=== PATIENT | male | born 1985 | race American Indian/Alaskan Native ===

== ENCOUNTER 2017-02-10 13:18 | Emergency (ER) | payer OTHER ==
[2017-02-10 13:27] VITALS: O2SAT 99
[2017-02-10] MEDS ORDERED: Sodium Chloride 0.9% 1,000 ML IV ONE (14:16)
[2017-02-10] MEDS ORDERED: Sodium Chloride 0.9% 1,000 ML ONE (14:26)
--- NOTE | 2017-02-10 14:47 | C.PDOC ---
History Of Present Illness 31 y/o male presents to the ED with complains of nausea, vomiting, diarrhea since 0600 this morning. Pt reports 3-4 episodes of vomit and 5 episodes diarrhea. Symptoms associated with cramping mid abdominal pain constant since last night. Pt reports eating a TV dinner and felt fine. Hx of appendectomy. Pt also complains of cough for the past 16 days associated with chest congestion, states he feels like there is phlegm stuck in his chest. Pt denies fever, urinary symptoms, SOB or any other complaints. No recent travel, sick contacts or recent antibiotic use. Time Seen by Provider: 02/10/17 13:34 Chief Complaint (Nursing): Abdominal Pain History Per: Patient History/Exam Limitations: no limitations Onset/Duration Of Symptoms: Hrs Current Symptoms Are (Timing): Still Present Quality Of Discomfort: Cramping Associated Symptoms: Nausea, Vomiting, Diarrhea. denies: Fever, Chills, Chest Pain, Urinary Symptoms Recent travel outside of the [place]: No Past Medical History Reviewed: Historical Data, Nursing Documentation, Vital Signs Vital Signs: Last Vital Signs Temp 98.2 F 02/10/17 16:02 Pulse 70 02/10/17 16:02 Resp 16 02/10/17 16:02 BP 112/68 02/10/17 16:02 Pulse Ox 99 02/10/17 16:55 Surgical History: Appendectomy (2009) Family History: States: Unknown Family Hx - Social History Hx Alcohol Use: No Hx Substance Use: Yes (MARIJUANA ON DAILY BASIS) - Immunization History Hx Tetanus Toxoid Vaccination: No Hx Influenza Vaccination: No Hx Pneumococcal Vaccination: No Review Of Systems Except As Marked, All Systems Reviewed And Found Negative. Constitutional: Negative for: Fever, Chills Cardiovascular: Negative for: Chest Pain Respiratory: Positive for: Cough, Other (chest congestion). Negative for: Shortness of Breath Gastrointestinal: Positive for: Nausea, Vomiting, Abdominal Pain, Diarrhea Genitourinary: Negative for: Dysuria, Hematuria Physical Exam - Physical Exam Appears: Non-toxic, No Acute Distress Skin: Warm, Dry, No Rash Head: Atraumatic, Normacephalic Oral Mucosa: Dry Throat: Normal Neck: Normal ROM, Supple Chest: Symmetrical Cardiovascular: Rhythm Regular, No Murmur Respiratory: Normal Breath Sounds, No Rales, No Rhonchi, No Wheezing Gastrointestinal/Abdominal: Soft, No Tenderness Extremity: Bilateral: Atraumatic Neurological/Psych: Oriented x3 ED Course And Treatment - Laboratory Results Result Diagrams: 02/10/17 14:42 02/10/17 14:42 O2 Sat by Pulse Oximetry: 99 (on room air) Pulse Ox Interpretation: Normal Progress Note: Plan: labs, CXR, IV fluids, protonix, toradol, zofran Medical Decision Making Medical Decision Making: Plan: -Labs -Protonix / zofran / toradol -CXR -IVF Labs reviewed and are wnl. CXR is normal. On re-evaluation, patient's symptoms are improving. Denies any chest pain, SOB or abdominal pain. On exam, patient is laying in bed in no acute distress. On exam, lungs still clear to auscultation, cardiac RRR, abdomen still soft with no tenderness. Labs reviewed , WBC 16, Hgb 8, CMP wnl, CXR NAD. Patient is feeling much improved with no pain at this time. Patient states that he feels comfortable going home. Advised to follow up with PMD in 1-2 days without fail. Advised to take medications as prescribed. Return to the ER at any time for any new or worsening symptoms. Disposition - Disposition Referrals: [facility] [Outside] Codie Ratliff MD [Staff Provider] - Disposition: HOME/ ROUTINE Disposition Time: 16:45 Condition: GOOD Additional Instructions: Follow up with pmd referral provided in 2 days without fail. Take medications as prescribed. Advised to return to the ER at any time for any new or worsening symptoms. Prescriptions: Dicyclomine [Bentyl] 20 mg PO QID PRN #20 tab PRN Reason: Other Famotidine [Pepcid] 40 mg PO DAILY #20 tablet Ondansetron ODT [Zofran ODT] 4 mg PO DAILY PRN #20 odt PRN Reason: Nausea/Vomiting Instructions: Gastroenteritis (ED), Dehydration (ED) Print Language: K[place]ILI - Clinical Impression Clinical Impression: Gastroenteritis, Dehydration - PA / DEPUTY COURT / Resident Statement MD/DO has reviewed & agrees with the documentation as recorded. - Scribe Statement The provider has reviewed the documentation as recorded by the Coby Retana All medical record entries made by the Scribe were at my direction and personally dictated by me. I have reviewed the chart and agree that the record accurately reflects my personal performance of the history, physical exam, medical decision making, and the department course for this patient. I have also personally directed, reviewed, and agree with the discharge instructions and disposition.
[2017-02-10 14:49] LABS: BASO % 0.4 % (0.0-2.0); EOS % 0.3 % (0.0-4.0); HEMATOCRIT 44.2 % (35.0-51.0); LYMPH # 0.7 K/uL (1.0-4.3); LYMPH % 13.7 % (20.0-40.0); MEAN CELL VOLUME 94.1 fL (80.0-94.0); MEAN CORPUSCULAR HEMOGLOBIN 31.1 pg (27.0-31.0); MEAN CORPUSCULAR HGB CONC 33.1 g/dL (33.0-37.0); MEAN PLATELET VOLUME 8.7 fL (7.2-11.7); MONO # 0.5 K/uL (0.0-0.8); MONO % 9.5 % (0.0-10.0); WHITE BLOOD COUNT 4.8 K/uL (4.8-10.8)
[2017-02-10 14:54] LABS: CHLORIDE 101 mmol/L (98-107)
[2017-02-10 14:55] LABS: POTASSIUM 3.9 mmol/L (3.6-5.2); SODIUM 141 mmol/L (132-148)
[2017-02-10 14:57] LABS: ALB/GLOB RATIO 1.2 (1.0-2.1); ALKALINE PHOSPHATASE 54 U/L (38-126); AST/SGOT 27 U/L (17-59); BILIRUBIN,TOTAL 0.6 mg/dL (0.2-1.3); CARBON DIOXIDE 27 mmol/L (22-30); GFR AFRICAN-AMERICAN > 60; TOTAL PROTEIN 8.2 g/dL (6.3-8.3)
[2017-02-10 14:58] LABS: ALT/SGPT 19 U/L (21-72); BLOOD UREA NITROGEN 9 mg/dL (9-20); GLUCOSE,RANDOM 91 mg/dL (75-110)
[2017-02-10 16:03] VITALS: BP 112/68; PULSE 70; RESP 16; TEMP 98.2
--- NOTE | 2017-02-10 16:15 | RAD ---
HISTORY: cough COMPARISON: No prior. TECHNIQUE: Chest PA and lateral FINDINGS: LUNGS: No focal consolidation. 11 mm nodular density projecting over the 9th posterior rib, possibly nipple shadow. Please note that chest x-ray has limited sensitivity for the detection of pulmonary masses. PLEURA: No significant pleural effusion identified. No definite pneumothorax . CARDIOVASCULAR: The cardiomediastinal silhouette appears within normal limits of size. OSSEOUS STRUCTURES: No acute osseous abnormality identified. VISUALIZED UPPER ABDOMEN: Unremarkable. OTHER FINDINGS: None. IMPRESSION: No focal consolidation, significant pleural effusion, or definite pneumothorax identified. 11 mm nodular density projecting over the 9th posterior rib, possibly nipple shadow.
== END 2017-02-10 17:17 | disposition home or self-care (01) ==
LOC: C.ER 13:18
DX: K52.9 Noninfective gastroenteritis and colitis, unspecified (principal); E86.0 Dehydration
CPT/HCPCS: 71020; 80053; 83690; 85025; 96361; 96374; 96375; 99284; C9113; J1885; J2405; J7040